=== PATIENT | male | born 1990 | race Caucasian/White ===

== ENCOUNTER → 2017-07-09 15:50 | Outpatient (CLI) | payer MEDICAID, SELFPAY ==
--- NOTE | 2017-07-09 16:26 | XR_ITS ---
XR knee RT 4V HISTORY: Right knee pain ITS.REASON: pain ORDERING PHYSICIAN: Tameka Zhang PATIENT AGE: 26 years COMPARISON: None FINDINGS: No fracture or dislocation. No lytic or blastic change. Normal mineralization. There is minor spurring along the lateral aspect of the patella and femoral condyle as well as the proximal lateral aspect of the tibia. The joint spaces are well-preserved. IMPRESSION: Minor osteoarthritic change
--- NOTE | 2017-07-09 16:26 | XR_ITS ---
XR knee LT 4V HISTORY: Left knee pain ITS.REASON: pain ORDERING PHYSICIAN: Tameka Zhang PATIENT AGE: 26 years COMPARISON: None FINDINGS: No fracture or dislocation. No lytic or blastic change. Normal mineralization. There is minimal spurring at the proximal tibia laterally with mild osteosclerosis of the tibial plateau laterally and minimal spurring along the lateral aspect of the femoral condyle seen on the patellar view. IMPRESSION: Minor osteoarthritic change, otherwise negative
[2017-07-09 17:54] LABS: Basophils % 0.4 % (0.1-2.0); Eosinophils # 0.3 K/mm3 (0.0-0.4); Eosinophils % 3.3 % (0.1-12.0); Hematocrit 44.9 % (42.0-52.0); Hemoglobin 15.3 g/dL (14.1-18.0); Lymphocytes # 2.4 K/mm3 (0.7-4.5); Lymphocytes % 27.2 K/mm3 (10-50); Mean Corpuscular HGB Conc 34.1 g/dL (31.8-35.4); Mean Corpuscular Hemoglobin 29.1 pg (27.0-31.2); Mean Corpuscular Volume 85.3 fl (80-94); Monocytes # 0.6 K/mm3 (0.1-1.0); Monocytes % 6.6 % (1.7-9.3); Neutrophils # 5.6 K/mm3 (1.8-7.8); Neutrophils % 62.5 % (37.0-80.0); Platelet Count 251 K/mm3 (142-424); Red Blood Count 5.26 M/mm3 (4.60-6.20); Red Cell Distribution Width 12.5 % (11.5-17.5)
[2017-07-09 18:53] LABS: Alanine Aminotransferase 72 U/L (12-78); Albumin Level 4.3 gm/dL (3.4-5.0); Albumin/Globulin Ratio 1.2 (1.1-1.8); Alkaline Phosphatase 69 U/L (46-116); Anion Gap 13.2 mEq/L (5-15); Aspartate Amino Transferase 21 U/L (15-37); Bilirubin,Total 0.4 mg/dL (0.2-1.0); Blood Urea Nitrogen 14 mg/dL (7-18); Carbon Dioxide 27 mmol/L (21.0-32.0); Chloride 104 mmol/L (98-107); Cholesterol 148 mg/dL (140-200); Creatinine,Serum 0.91 mg/dL (0.70-1.30); Estimated Glomerular Filt Rate 101 ml/min (>60); Free T4 (Free Thyroxine) 1.08 ng/dl (0.76-1.46); GFR (African American) 122 ML/MIN (>60); Globulin 3.6 gm/dl (1.3-3.2); Glucose 78 mg/dL (74-106); HDL Cholesterol 37 mg/dL (27-67); LDL Cholesterol 98 mg/dL (0-130); Potassium 4.2 mmoL/L (3.5-5.1); Sodium 140 mmol/L (136-145); Thyroid Stimulating Hormone 1.17 uIU/ml (0.358-3.740); Total Protein,Serum 7.9 gm/dL (6.4-8.2); Triglycerides 65 mg/dL (30-200); VLDL Cholesterol 13 mg/dL (0-40)
[2017-07-09 19:44] LABS: Hemoglobin A1C 5.6 % (0.0-7.0)
[2017-07-11 18:00] LABS: Vitamin D 25 Hydroxy 25.6 ng/mL (30.0-100.0)
== END ==
PROVIDERS: PCP Emergency Medicine; Visit Provider Nurse Practitioner Family
DX: R53.83 Other fatigue (principal); R52 Pain, unspecified; M25.561 Pain in right knee; M25.562 Pain in left knee
CPT/HCPCS: 73564; 80053; 80061; 82652; 83036; 84439; 84443; 85025

== ENCOUNTER 2017-10-09 10:30 | Outpatient (RCR) | payer MEDICAID, SELFPAY ==
--- NOTE | 2017-08-03 10:30 | HMH.PTOPEV ---
Rehab Outpatient Evaluation Rehab OP Evaluation Start: 08/03/17 10:17 Freq: Status: Active Protocol: Document 08/03/17 10:17 MELANI (Rec: 08/03/17 10:30 MELANI [id number]) Electronically Signed By Sabino Brooks, PT 08/03/17 10:17 Outpatient Therapy Subjective History Subjective History Pt reports h/o chronic B knee pain, however, reports recent exacerbation over the last 3 months. Pt reports anterior R knee pain, and lateral L knee pain most frequently. Recent Xrays of B knee(s) have revealed, 'arthritis, but I'm not sure how bad'. Chief Complaint Pain Stiff Swelling Weakness Symptom Type Ache Throb Sharp Dull Symptoms Relieved By Rest/Positioning Ice Symptoms Aggravated By Physical Activity Walking Lifting Prior Functional Limitations None Current Functional Limitations Standing Recreation Activity Walking Stairs Symptom Description Intermittent Level of pain today (0-10) 2 Pain scale - at its best (0-10) 0 Pain scale - at its worst (0-10) 9 Hip/Knee Eval Gait Observation General Gait Pattern Observation No Deviations/Normal Assistive Device Assistive Devices None / NA Palpation Tenderness left Knee Palpation Finding Tenderness Knee Palpation Overall Comment 2/4 medial jt line, HS right Knee Palpation Finding Tenderness Knee Palpation Overall Comment 2/4 patellar tendon, medial HS MMT bilateral Hip Flexion Strength Grade 4 Good Hip Abduction Strength Grade 4- Good- Hip Adduction Strength Grade 4- Good- Hip Extension Strength Grade 4- Good- Hip External Rotation Strength Grade 4 Good Hip Internal Rotation Strength Grade 4- Good- Knee Extension Strength Grade 5 Normal Knee Flexion Strength Grade 4- Good- ROM left Knee Flexion Active Range of Motion ( 0-130 degrees) right Knee Flexion Active Range of Motion ( 0-115 degrees) Effusion joint effusion knee exam standard right Mid - Patellar Circumerential Measure ( 47 cm) 5cm Proximal Circumference Measure (cm) 49.5 5cm Dista
--- NOTE | 2017-09-01 15:38 | HMH.RHREAS ---
Rehab Reassessment Rehab OP Re-assessment Start: 09/01/17 14:13 Freq: Status: Active Protocol: Document 09/01/17 14:13 MELANI (Rec: 09/01/17 15:04 MELANI [id number]) Electronically Signed By Sabino Brooks, PT 09/01/17 14:13 Rehab Re-assessment Subjective Subjective Pt reports improved B knee pain @2-3/10 on VAS, and feels 50-60% better overall since I EVAL Objective Objective Notes AROM: B KNEE FLX 0-130 MMT: B HIP FLX 4+/5, B HIP ABD /ADD/EXT 4/5, B KNEE FLX/EXT 5 /5 TTP: R PAT. TENDON 05/21, L PAT TENDON 05/21 Assessment Progress Assessment Progressing as Expected Assessment Notes PT W/IMPROVED ROM, STRENGTH, AND TTP Patient goals met STG'S 10/21 LTG'S 07/24 Goals Not Met LTG'S 10/24 Plan Plan PT TO CONT W/SKILLED P.T. TO MAKE FURTHER IMPROVEMENTS W/ ROM, STRENGTH, AND TTP TO ALLOW FOR OPTIMAL FUNCTION Frequency of Therapy 1-2X/WK Duration of therapy 3-4 WKS Time and Billing Re-Eval Time 15 Re-Eval Billing Units 1 PHYSICIAN CERTIFICATION: I certify the specified therapy services for Jamin Andrew are required, authorized, and reviewed every 30 days.
== END 2017-10-09 10:31 | disposition home or self-care (01) ==
LOC: PT 10:30
PROVIDERS: PCP Emergency Medicine; Visit Provider Nurse Practitioner Family
DX: M25.561 Pain in right knee (principal); M25.562 Pain in left knee
CPT/HCPCS: 97010; 97014; 97033; 97110; 97164; G0283

== ENCOUNTER 2023-03-12 14:05 | Emergency (ER) | payer BC, SELFPAY ==
[2023-03-12 14:20] VITALS: BP 151/96; PULSE 77; RESP 19; TEMP 36.9; O2SAT 97; BMI 34.2
--- NOTE | 2023-03-12 14:25 | EXP.UTC ---
Discharge Plan Disposition Patient Disposition: Home, Self-Care Condition: Good Prescriptions Prescriptions: New azithromycin [Zithromax] 250 mg tablet 250 mg PO UD DOSE PK Qty: 6 0RF Rx Instructions: Take two (2) tablets today, then one (1) tablet days #2 thru #5 [id number]-bjhncmsxh-DY [Bromfed DM] 2-30-10 mg/5 mL Syrup 5 ml PO Q6H PRN (Reason: Cough) Qty: 240 0RF methylprednisolone 4 mg Tablets,Dose Pack 4 mg PO DIRECTED Qty: 21 0RF Referrals Follow up/Referrals: Provider,Referral, MD [Primary Care Provider] - See instructions Activity Restrictions/Add. Instructions Additional Instructions/Restrictions: Drink plenty of fluids. Take tylenol or ibuprofen for pain or fever. Take the medications as directed. Follow up with your regular doctor. GO TO THE ER FOR ANY WORSENING SYMPTOMS Clinical Impressions Clinical Impression: Sinusitis Instructions Patient Instructions: Sinusitis, DI for Sinusitis Discharge ED Provider: Hardik Moore [facility] General Stated complaint: headache,sinus pressure Mode of Arrival: Ambulatory Source of Information: Patient Limitations: No Limitations Time Seen by Provider: 03/12/23 14:10 Description of Symptoms (Recalled from Triage Doc. by RN): PATIENT C/O SINUS PRESSURE AND DRAINAGE, HEADACHE, SORE THROAT AND FEVER X 2 DAYS HEENT Symptoms (Recalled from RN notes): Yes Resp Symptoms (Recalled from RN notes): No Skin Symptoms (Recalled from RN notes): No MS Symptoms (Recalled from RN notes): No Functional Status (Recalled from RN notes): WNL History of Present Illness Provider Complaint: He states that for the past 2 days he has had worsening sinus congestion and sore throat. Related Data Previous Rx's Medication Instructions Recorded azithromycin 250 mg tablet 250 mg PO UD DOSE PK #6 tabs 03/12/23 (Zithromax) nzrtaofwbmbxzhk-ulfoxabniqeflob-HU 5 ml PO Q6H PRN Cough #240 mL 03/12/23 2 mg-30 mg-10 mg/5 mL oral syrup (Bromfed DM) methylprednisolone 4 mg tablets in 4 mg PO DIRECTED #21 tabs 03/12/23 a dose pack Allergies Allergy/AdvReac Type Severity Reaction Status Date / Time No Known Allergies Allergy Verified 08/13/18 13:32 Worker's Comp Is this a Worker's Comp case?: No [facility] Disclaimer: The information contained in this section may have been updated after the patient was seen, as this information can be updated by other users. Social History Smoking Status: Never smoker alcohol intake: current substance use type: marijuana current occupational status: unemployed Travel in the last 8 weeks: Inside the [place] household members: family housing: house ROS Obtained: Yes All systems reviewed & no additional complaints except as documented Constitutional Constitutional: Reports chills and Reports fever(s) Eyes Eyes: Denies eye discharge ENT Ears, Nose, Mouth, and Throat: Reports as per HPI Cardiovascular Cardiovascular: Denies chest pain Respiratory Respiratory: Denies chest congestion and Reports cough Gastrointestinal Gastrointestingal: Reports nausea; Denies abdominal pain, constipation, cramping, diarrhea or vomiting Musculoskeletal Musculoskeletal: Denies arthralgias Integumentary/Breasts Skin/Breast: Denies rash Neurologic Neurologic: Denies paresthesias Physical Exam General General appearance: alert and in no apparent distress Head Head exam: atraumatic, normocephalic and normal inspection Eye Eye exam: Present normal appearance, PERRL and EOMI ENT ENT exam: Present normal exam, normal oropharynx, mucous membranes moist, TM's normal bilaterally and normal external ear exam Neck Neck exam: Present normal inspection, full ROM and trachea midline; Absent meningismus or lymphadenopathy Chest Chest inspection: Present normal inspection and symmetric chest wall rise; Absent tenderness Respiratory Respiratory exam: Present normal lung sounds bilaterally; Absent respira
[2023-03-12 14:31] VITALS: BP 151/96; PULSE 77; RESP 19; TEMP 36.9; O2SAT 97
== END 2023-03-12 15:14 | disposition home or self-care (01) ==
PROVIDERS: Emergency Provider Nurse Practitioner Family
DX: J01.90 Acute sinusitis, unspecified (principal)
CPT/HCPCS: 99204; 99212; G0463

== ENCOUNTER 2023-05-30 19:32 | Emergency (ER) | payer BC, SELFPAY ==
[2023-05-30 19:39] VITALS: BP 132/76; PULSE 89; RESP 22; TEMP 37.8; O2SAT 98; BMI 33.9
[2023-05-30 19:48] LABS: Coronavirus 19, PCR Not Detected (NotDetected); Influenza B, PCR Not Detected (NotDetected)
[2023-05-30 19:57] LABS: Strep Scrn Group A (Rapid) Negative (Negative)
[2023-05-30 20:07] LABS: Influenza A, PCR Detected (NotDetected)
[2023-05-30 20:52] VITALS: BP 121/72; PULSE 60; RESP 20; TEMP 37.3; O2SAT 98
--- NOTE | 2023-05-31 23:50 | HMH.EDGENADL ---
Discharge Plan Disposition Patient Disposition: Home, Self-Care Condition: Good Prescriptions Prescriptions: New amoxicillin 500 mg capsule 500 mg PO BID 7 Days Qty: 14 0RF oseltamivir [Tamiflu] 75 mg capsule 75 mg PO DAILY 10 Days Qty: 10 0RF No Action azithromycin [Zithromax] 250 mg tablet 250 mg PO UD DOSE PK Qty: 6 0RF Rx Instructions: Take two (2) tablets today, then one (1) tablet days #2 thru #5 hvlvidlqwsvnkiy-ousumrnua-TE [Bromfed DM] 2-30-10 mg/5 mL Syrup 5 ml PO Q6H PRN (Reason: Cough) Qty: 240 0RF methylprednisolone 4 mg Tablets,Dose Pack 4 mg PO DIRECTED Qty: 21 0RF Referrals Follow up/Referrals: Provider,Referral, MD [Primary Care Provider] - See instructions Activity Restrictions/Add. Instructions Additional Instructions/Restrictions: Please take the medications for influenza and presumptive diagnosis of strep pharyngitis. Please return with any new or worsening symptoms. Clinical Impressions Clinical Impression: Influenza A, Acute streptococcal pharyngitis Discharge ED Provider: Boy Reyes General Adult HPI General Chief complaint: Upper Respiratory Infection Stated complaint: sore throat, SOA, exposed to srep &pneumonia Time Seen by Provider: 05/30/23 19:56 Mode of Arrival: Family Vehicle Source of Information: Patient Limitations: No Limitations Description of Symptoms (Recalled from ER Triage Doc. by RN): 32 yo male presents with cough, itchy, shortness of air, fatigue, low grade fever History of Present Illness HPI narrative: Patient presents with approximately 24 hours of myalgias, generalized malaise, nonproductive cough, gradual in onset, constant, stable in course. He has associated sore throat without globus sensation or dysphonia. He has had exposure to strep pharyngitis from his child. He has also had other sick contacts in the family with upper respiratory symptoms. He denies chronic medical conditions. He takes no medications daily. Previous therapies include tdfv-plf-zigtebw medications with some efficacy. He denies chest pain or palpitations or shortness of breath at this time. Related Data Previous Rx's Medication Instructions Recorded azithromycin 250 mg tablet 250 mg PO UD DOSE PK #6 tabs 03/12/23 (Zithromax) ulwxlrkhlwqmicz-daukccjbnasnbuf-IY 5 ml PO Q6H PRN Cough #240 mL 03/12/23 2 mg-30 mg-10 mg/5 mL oral syrup (Bromfed DM) methylprednisolone 4 mg tablets in 4 mg PO DIRECTED #21 tabs 03/12/23 a dose pack amoxicillin 500 mg capsule 500 mg PO BID 7 days #14 caps 05/30/23 oseltamivir 75 mg capsule (Tamiflu) 75 mg PO DAILY 10 days #10 caps 05/30/23 Allergies Allergy/AdvReac Type Severity Reaction Status Date / Time No Known Allergies Allergy Verified 08/13/18 13:32 [facility] Disclaimer: The information contained in this section may have been updated after the patient was seen, as this information can be updated by other users. Social History Smoking Status: Unknown if ever smoked alcohol intake: current substance use type: marijuana current occupational status: unemployed Travel in the last 8 weeks: Inside the [place] household members: family housing: house ROS Obtained: Yes Systems reviewed as appropriate & no additional complaints except as documented As per HPI Physical Exam General General appearance: alert and in no apparent distress Head Head exam: atraumatic and normocephalic Eye Eye exam: Present normal appearance Expanded ENT Exam Throat exam: Present tonsillar erythema and tonsillar exudate Neck Neck exam: Present normal inspection Chest Chest inspection: Present normal inspection and symmetric chest wall rise Respiratory Respiratory exam: Present normal lung sounds bilaterally; Absent respiratory distress Cardiovascular Cardiovascular exam: Present regular rate and normal rhythm Abdominal Exam Abdominal exam: Present soft Neurological Exam Neurological exam: Present alert and oriented X3 Psychiatric Psychiatric exam: Present normal affect and normal mood Skin Skin exam: Present warm and dry Medical Decision Making Medical Records Medical records reviewed: Yes I reviewed the patient's medical records. Ariel Inquiry Pt receiving controlled substance: No Vital Signs: 05/30/23 19:39 05/30/23 20:52 Temperature 100.1 F H 99.2 F Temperature Source Oral Oral Pulse Rate 60 Pulse Rate [Right Brachial] 89 Respiratory Rate 22 20 Blood Pressure 121/72 Blood Pressure [Right Arm] 132/76 Blood Pressure Mean [Right Arm] 94 Blood Pressure Source [Right Arm] Automatic Cuff Blood Pressure Position [Right Arm] Sitting 02 Sat by Pulse Oximetry 98 Oxygen Delivery Method Room Air Room Air Lab Data Lab Results 05/30/23 19:40: SARS-CoV-2 (PCR) Not detected, Influenza A Untype (PCR) Detected A, Influenza Type B (PCR) Not detected, Group A Strep Rapid Negative Orders (Tests/Meds): ORDERS Category Date Time Status Rapid PCR Covid and Flu A/B Stat Lab 05/30/23 19:40 Completed Strep Scrn Group A (Rapid) Stat Lab 05/30/23 19:40 Completed Strep Screen Confirmation Stat Micro 05/30/23 19:40 Received Medical Decision Narrative: Patient with history and exam per above presenting for evaluation of sore throat, upper respiratory symptoms Diagnoses considered include strep pharyngitis, influenza, pneumonia, low index suspicion at this time given reassuring physical exam for surgical pathology such as MACH[employer]TE[employer]CH[employer]IC, RPA, epiglottitis ED workup and treatment included: ORDERS Category Date Time Status Rapid PCR Covid and Flu A/B Stat Lab 05/30/23 19:40 Completed Strep Scrn Group A (Rapid) Stat Lab 05/30/23 19:40 Completed Strep Screen Confirmation Stat Micro 05/30/23 19:40 Received Labs were independently interpreted by me, significant for influenza positive, rapid strep negative however my pretest probability is quite high given physical exam and recent sick contacts with confirmed illness No imaging is indicated at this time Symptoms at this time are thought to be most consistent with clinical diagnosis of strep pharyngitis, as well as influenza I discussed my clinical impression with patient and answered all questions. At this time, given reassuring workup and exam, I discussed that I have a low index of suspicion for any acute pathology necessitating inpatient management. Specific return precautions were given, with understanding and agreement. Patient will follow up with primary care provider as needed. Patient was prescribed amoxicillin and Tamiflu Critical Care Critical Care Time Critical Care Time: No
--- NOTE | 2023-06-04 08:32 | PC.NURSE ---
THROAT CULTURE RESULTS DISCUSSED WITH DR WHITLOCK PT TREATED WITH APPROPRIATE ABX, NO NEW ORDERS
== END 2023-05-30 20:52 | disposition home or self-care (01) ==
PROVIDERS: Emergency Provider Emergency Medicine
DX: J10.1 Influenza due to other identified influenza virus with other respiratory manifestations (principal); J02.0 Streptococcal pharyngitis; R06.02 Shortness of breath; R07.0 Pain in throat; R50.9 Fever, unspecified; R53.81 Other malaise; M79.18 Myalgia, other site
CPT/HCPCS: 87430; 87636; 99283

== ENCOUNTER 2023-06-09 13:58 | Emergency (ER) | payer BC, SELFPAY ==
[2023-06-09 14:10] VITALS: BP 128/63; PULSE 72; RESP 18; TEMP 36.7; O2SAT 97; BMI 33.9
--- NOTE | 2023-06-09 14:23 | ED_ITS ---
Discharge Plan Disposition Patient Disposition: Home, Self-Care Condition: Good Prescriptions Prescriptions: New azithromycin [Zithromax] 250 mg tablet 250 mg PO UD DOSE PK Qty: 6 0RF Rx Instructions: Take two (2) tablets today, then one (1) tablet days #2 thru #5 methylprednisolone 4 mg Tablets,Dose Pack 4 mg PO DIRECTED 6 Days Qty: 21 0RF Rx Instructions: Take 1 pack as directed for 6 days xekoxaeesjwdcvq-tyhlxojpm-VX [Bromfed DM] 2-30-10 mg/5 mL Syrup 5 ml PO Q6H PRN (Reason: Cough) Qty: 240 0RF No Action amoxicillin 500 mg capsule 500 mg PO BID 7 Days Qty: 14 0RF Referrals Follow up/Referrals: Provider,Referral, MD [Primary Care Provider] - See instructions Activity Restrictions/Add. Instructions Additional Instructions/Restrictions: Drink plenty of fluids. Take tylenol or ibuprofen for pain or fever. Take the medications as directed. Follow up with your regular doctor. GO TO THE ER FOR ANY WORSENING SYMPTOMS Clinical Impressions Clinical Impression: Pharyngitis Instructions Patient Instructions: Sore Throat, DI for Pharyngitis/Tonsillopharyngitis -- Adult Discharge ED Provider: Hardik Moore [facility] General Stated complaint: congestion and sore throat Time Seen by Provider: 06/09/23 14:23 History of Present Illness Provider Complaint: He states that he was diagnosed with strep throat 10 days ago. He was prescribed amoxicillin. He has finished the amoxicillin and states that he has not got any better. Related Data Previous Rx's Medication Instructions Recorded amoxicillin 500 mg capsule 500 mg PO BID 7 days #14 caps 05/30/23 azithromycin 250 mg tablet 250 mg PO UD DOSE PK #6 tabs 06/09/23 (Zithromax) xggwukpglidwyih-ruyvkpkmywzrwhz-ZL 5 ml PO Q6H PRN Cough #240 mL 06/09/23 2 mg-30 mg-10 mg/5 mL oral syrup (Bromfed DM) methylprednisolone 4 mg tablets in 4 mg PO DIRECTED 6 days #21 tabs 06/09/23 a dose pack Allergies Allergy/AdvReac Type Severity Reaction Status Date / Time No Known Allergies Allergy Verified 06/09/23 14:35 [facility] Disclaimer: The information contained in this section may have been updated after the patient was seen, as this information can be updated by other users. Social History Smoking Status: Unknown if ever smoked alcohol intake: current substance use type: marijuana current occupational status: unemployed Travel in the last 8 weeks: Inside the [place] household members: family housing: house ROS Obtained: Yes All systems reviewed & no additional complaints except as documented Constitutional Constitutional: Reports chills and Reports fever(s) Eyes Eyes: Denies eye discharge ENT Ears, Nose, Mouth, and Throat: Reports as per HPI Cardiovascular Cardiovascular: Denies chest pain Respiratory Respiratory: Denies chest congestion and Reports cough Gastrointestinal Gastrointestingal: Reports nausea; Denies abdominal pain, constipation, cramping, diarrhea or vomiting Musculoskeletal Musculoskeletal: Denies arthralgias Integumentary/Breasts Skin/Breast: Denies rash Neurologic Neurologic: Denies paresthesias Physical Exam General General appearance: alert and in no apparent distress Head Head exam: atraumatic, normocephalic and normal inspection Eye Eye exam: Present normal appearance, PERRL and EOMI ENT ENT exam: Present mucous membranes moist and normal external ear exam Expanded ENT Exam TM/Canal exam: Bilateral TM: erythema and bulging Nose exam: Absent sinus tenderness Mouth exam: Present normal external inspection; Absent drooling Teeth exam: Present normal inspection Throat exam: Present tonsillar erythema, tonsillomegaly and tonsillar exudate Neck Neck exam: Present normal inspection, full ROM and trachea midline; Absent tenderness, meningismus or lymphadenopathy Chest Chest inspection: Present normal inspection and symmetric chest wall rise; Absent tenderness Respiratory Respiratory exam: Present normal lung sounds bilaterally; Absent respiratory distress, wheezes or stridor Cardiovascular Cardiovascular exam: Present regular rate and normal rhythm; Absent systolic murmur or diastolic murmur Abdominal Exam Abdominal exam: Present soft and normal bowel sounds; Absent distention, tenderness, guarding, rebound or rigidity Extremities Exam Extremities exam: Present normal inspection and normal capillary refill; Absent calf tenderness Back Exam Back exam: Present normal inspection and full ROM; Absent tenderness, CVA tenderness (R) or CVA tenderness (L) Neurological Exam Neurological exam: Present alert, oriented X3 and CN II-XII intact Psychiatric Psychiatric exam: Present normal affect and normal mood Skin Skin exam: Present warm, dry, intact and normal color Medical Decision Making Medical Records Medical records reviewed: No I reviewed the patient's medical records. Ariel Inquiry Pt receiving controlled substance: No Lab Data Lab results reviewed: Yes I reviewed the patient's lab results.
[2023-06-09 14:26] LABS: UTC Strep Screen (Rapid) Negative (Negative)
[2023-06-09 15:08] VITALS: BP 128/63; PULSE 72; RESP 18; TEMP 36.7; O2SAT 97
== END 2023-06-09 15:08 | disposition home or self-care (01) ==
PROVIDERS: Emergency Provider Nurse Practitioner Family
DX: J02.9 Acute pharyngitis, unspecified (principal); R05.9 Cough, unspecified; R50.9 Fever, unspecified
CPT/HCPCS: 87880; 99212; 99214; G0463

== ENCOUNTER 2023-12-27 11:40 | Emergency (ER) | payer BC, SELFPAY ==
--- NOTE | 2023-12-27 11:58 | ED_ITS ---
Discharge Plan Disposition Patient Disposition: Home, Self-Care Condition: Good Prescriptions Prescriptions: New amoxicillin 875 mg tablet 875 mg PO Q12H Qty: 20 0RF methylprednisolone 4 mg Tablets,Dose Pack 4 mg PO DIRECTED 6 Days Qty: 21 0RF Rx Instructions: Take 1 pack as directed for 6 days [id number] [Bromfed DM] 2-30-10 mg/5 mL Syrup 5 ml PO Q6H PRN (Reason: Cough) Qty: 240 0RF Referrals Follow up/Referrals: Provider,Referral, MD [Primary Care Provider] - See instructions Activity Restrictions/Add. Instructions Additional Instructions/Restrictions: Drink plenty of fluids. Take tylenol or ibuprofen for pain or fever. Take the medications as directed. Follow up with your regular doctor. GO TO THE ER FOR ANY WORSENING SYMPTOMS Clinical Impressions Clinical Impression: Sinusitis, Acute viral syndrome Stand Alone Forms Stand Alone Forms: Work/School Release Instructions Patient Instructions: Sinusitis, DI for Sinusitis Print Language Print Language: Barbadian Discharge ED Provider: Hardik Moore [facility] HPI General Stated complaint: congestion, ear pressure, cough Time Seen by Provider: 12/27/23 11:58 History of Present Illness Provider Complaint: He states that for the past 5 days he has had sinus congestion, chest congestion, bilateral ear pain and malaise. Related Data Previous Rx's ?Medication ?Instructions ?Recorded amoxicillin 875 mg tablet 875 mg PO Q12H #20 tabs 12/27/23 [id number]-[id number] 5 ml PO Q6H PRN Cough #240 mL 12/27/23 2 mg-30 mg-10 mg/5 mL oral syrup (Bromfed DM) methylprednisolone 4 mg tablets in 4 mg PO DIRECTED 6 days #21 tabs 12/27/23 a dose pack Allergies Allergy/AdvReac Type Severity Reaction Status Date / Time No Known Allergies Allergy Verified 06/09/23 14:35 [facility] Disclaimer: The information contained in this section may have been updated after the patient was seen, as this information can be updated by other users. Surgical History (Updated 12/27/23 @ 12:10 by Komal Dow RN) History of wisdom tooth extraction Social History Smoking Status: Unknown if ever smoked alcohol intake: current alcohol intake frequency: holidays/special occasions only substance use type: marijuana current occupational status: unemployed Travel in the last 8 weeks: Inside the [place] household members: family housing: house ROS Obtained: Yes All systems reviewed & no additional complaints except as documented Constitutional Constitutional: Reports chills and Reports fever(s) Eyes Eyes: Denies eye discharge ENT Ears, Nose, Mouth, and Throat: Reports as per HPI Cardiovascular Cardiovascular: Denies chest pain Respiratory Respiratory: Denies chest congestion and Reports cough Gastrointestinal Gastrointestingal: Reports nausea; Denies abdominal pain, constipation, cramping, diarrhea or vomiting Musculoskeletal Musculoskeletal: Denies arthralgias Integumentary/Breasts Skin/Breast: Denies rash Neurologic Neurologic: Denies paresthesias Physical Exam General General appearance: alert and in no apparent distress Head Head exam: atraumatic, normocephalic and normal inspection Eye Eye exam: Present normal appearance, PERRL and EOMI ENT ENT exam: Present mucous membranes moist and normal external ear exam Expanded ENT Exam TM/Canal exam: Bilateral TM: erythema and bulging Nose exam: Absent sinus tenderness Mouth exam: Present normal external inspection; Absent drooling Teeth exam: Present normal inspection Throat exam: Present tonsillar erythema, tonsillomegaly and tonsillar exudate Neck Neck exam: Present normal inspection, full ROM and trachea midline; Absent tenderness, meningismus or lymphadenopathy Chest Chest inspection: Present normal inspection and symmetric chest wall rise; Absent tenderness Respiratory Respiratory exam: Present normal lung sounds bilaterally; Absent respiratory distress, wheezes, stridor or accessory muscle use Cardiovascular Cardiovascular exam: Present regular rate and normal rhythm; Absent systolic murmur or diastolic murmur Abdominal Exam Abdominal exam: Present soft and normal bowel sounds; Absent distention, tenderness, guarding, rebound or rigidity Extremities Exam Extremities exam: Present normal inspection and normal capillary refill; Absent calf tenderness Back Exam Back exam: Present normal inspection and full ROM; Absent tenderness, CVA tenderness (R) or CVA tenderness (L) Neurological Exam Neurological exam: Present alert, oriented X3 and CN II-XII intact Psychiatric Psychiatric exam: Present normal affect and normal mood Skin Skin exam: Present warm, dry, intact and normal color Medical Decision Making Medical Records Medical records reviewed: No I reviewed the patient's medical records. Ariel Inquiry Pt receiving controlled substance: No Lab Data Lab results reviewed: Yes I reviewed the patient's lab results.
[2023-12-27 12:00] VITALS: BP 138/86; PULSE 77; RESP 20; TEMP 36.7; O2SAT 96; BMI 32.9
[2023-12-27 12:26] VITALS: BP 138/86; PULSE 77; RESP 20; TEMP 36.7; O2SAT 96
== END 2023-12-27 12:32 | disposition home or self-care (01) ==
PROVIDERS: Emergency Provider Nurse Practitioner Family
DX: J01.90 Acute sinusitis, unspecified (principal); H92.03 Otalgia, bilateral; B34.9 Viral infection, unspecified
CPT/HCPCS: 87635; 99212; 99214; G0463